=== PATIENT | male | born 1980 | race Caucasian/White ===

== ENCOUNTER 2018-10-15 12:13 | Emergency (ER) | payer MEDICAID ==
--- NOTE | 2018-10-15 15:16 | EDPHY ---
H & P Stated Complaint: Pain/swelling in bilat feet Time Seen by Provider: 10/15/18 14:56 HPI/ROS: CHIEF COMPLAINT: Bilateral foot pain HISTORY OF PRESENT ILLNESS: The patient is a 38-year-old man with a history of juvenile onset rheumatoid arthritis as well as chronic low back pain who comes to the emergency department complaining of pain at the 1st metatarsal joint of both feet for the last 2 months. He he states that he made an appointment with his primary doctor and had to wait for a month to see her. When he saw her they mostly talked about his back pain and she told him he would have to come back to discuss his chronic foot pain. His follow-up appointment was today but when he showed up found out that she was gone on family leave. He decided at this point to come to the ER. He states that he is tried previously to make an appointment with Rheumatology but did not have a referral. He works with no removal but has been trying to keep his feet dry. He has not had any erythema or warmth. No fevers. No recent trauma. Severity: Moderate Modifying factors: None REVIEW OF SYSTEMS: Constitutional: denies: chills, fever, recent illness, recent injury EENTM: denies: blurred vision, double vision, nose congestion Respiratory: denies: cough, shortness of breath Cardiac: denies: chest pain, irregular heart rate, lightheadedness, palpitations Gastrointestinal/Abdominal: denies: abdominal pain, diarrhea, nausea, vomiting, blood streaked stools Genitourinary: denies: dysuria, frequency, hematuria, pain Musculoskeletal: denies: joint pain, muscle pain Skin: denies: lesions, rash, jaundice, bruising Neurological: denies: headache, numbness, paresthesia, tingling, dizziness, weakness Hematologic/Lymphatic: denies: blood clots, easy bleeding, easy bruising Immunologic/allergic: denies: HIV/AIDS, transplant 10 systems reviewed and negative except as noted EXAM: GENERAL: Well-appearing, well-nourished and in no acute distress. HEAD: Atraumatic, normocephalic. EYES: Pupils equal round and reactive to light, extraocular movements intact, sclera anicteric, conjunctiva are normal. ENT: TMs normal, nares patent, oropharynx clear without exudates. Moist mucous membranes. NECK: Normal range of motion, supple without lymphadenopathy or JVD. LUNGS: Breath sounds clear to auscultation bilaterally and equal. No wheezes rales or rhonchi. HEART: Regular rate and rhythm without murmurs, rubs or gallops. ABDOMEN: Soft, nontender, normoactive bowel sounds. No guarding, no rebound. No masses appreciated. BACK: No CVA tenderness, no spinal tenderness, step-offs or deformities EXTREMITIES: Bilateral knee pain over 1st metatarsal joints on palmar aspect. No swelling are deformity or erythema on the dorsal aspect. Normal movement in flex sedation. The no obvious trauma. No tophi. Normal range of motion, no pitting or edema. No clubbing or cyanosis. NEUROLOGICAL: Cranial nerves II through XII grossly intact. Normal speech, normal gait. 5/5 strength, normal movement in all extremities, normal sensation , normal reflexes PSYCH: Normal mood, normal affect. SKIN: Warm, dry, normal turgor, no visible rashes or lesions. Source: Patient Exam Limitations: No limitations - Personal History Current Tetanus/Diphtheria Vaccine: Yes - Medical/Surgical History Hx Asthma: No Hx Chronic Respiratory Disease: No Hx Diabetes: No Hx Cardiac Disease: No Hx Renal Disease: No Hx Cirrhosis: No Hx Alcoholism: No Other PMH: L-4-L5 fusion, rheumatoid arthritis, - Family History Significant Family History: No pertinent family hx - Social History Smoking Status: Heavy smoker Alcohol Use: None Constitutional: Initial Vital Signs Temperature (C) 36.8 C 10/15/18 12:29 Heart Rate 77 10/15/18 12:29 Respiratory Rate 18 10/15/18 12:29 Blood Pressure 136/94 H 10/15/18 12:29 O2 Sat (%) 95 10/15/18 12:29 O2 Delivery Mode Room Air Allergies/Adverse Reactions: No Known Allergies Allergy (Unverified 10/15/18 12:33) Home Medications: Medication Instructions Recorded Flexeril 10 MG (*) 10/15/18 Medical Decision Making - Diagnostics Imaging Results: Imaging Impressions Foot X-Ray 10/15/18 15:06 Impression: Negative right foot radiographs. No fracture or bone resorptive changes identified. Foot X-Ray 10/15/18 15:06 Impression: Negative left foot radiographs. Imaging: Discussed imaging studies w/ house calls nurse Radiologist ED Course/Re-evaluation: The patient asked for pain medicine. He states that he has been taking ibuprofen at home and his primary prescribed Flexeril for his back. He states that these are not working. I offered a dose of steroids for his rheumatoid arthritis but he is hesitant for this. We discussed are no narcotic policy and he understands. He asked about naproxen and told him that was similar to ibuprofen. He states that he is worried about taking too much ibuprofen. We discussed using Tylenol and heat packs. 4:00 p.m. We discussed x-ray results. No obvious fracture or dislocation. No severe arthritis. The patient does not wish to have any new prescription pain medications. He primarily is asking for referral to podiatry Dermatology. Will provide this. He is happy with this and declines further workup. I suggested rest and icing. We discussed indications for returning. Differential Diagnosis: Partial list of the Differential diagnosis considered include but were not limited to; trench foot, arthritis, plantar fasciitis and although unlikely based on the history and physical exam, I also considered fracture, gout, dislocation,. I discussed these differential diagnoses and the plan with the patient as well as the usual and expected course. The patient understands that the diagnosis is provisional and that in medicine we are not always correct and that further workup is often warranted. Usual and customary warnings were given. All of the patient's questions were answered. The patient was instructed to return to the emergency department should the symptoms at all worsen or return, otherwise to followup with the physician as we discussed. Departure - Departure Disposition: Home, Routine, Self-Care Clinical Impression: Bilateral foot pain Condition: Good Instructions: Arthralgia (ED) Referrals: NONE *PRIMARY CARE P,. [Primary Care Provider] - As per Instructions Dylon Bryant DPM [Doctor of Podiatric Medicine] - 2-3 days, if not improved Dominick Milan MD [place] [place] - 2-3 days, call for appt.
[2018-10-15 16:43] VITALS: BP 133/84
== END 2018-10-15 16:44 | disposition home or self-care (01) ==
DX: M79.671 Pain in right foot (principal); M79.672 Pain in left foot; M06.9 Rheumatoid arthritis, unspecified; F17.200 Nicotine dependence, unspecified, uncomplicated; Z98.1 Arthrodesis status